=== PATIENT | male | born 1965 | race Caucasian/White ===

== ENCOUNTER 2021-04-20 12:36 | Outpatient (REF) | payer OTHER, SELFPAY ==
--- NOTE | ~2021-04-20 | XR_ITS ---
EXAMINATION: XR THORACIC SPINE XR LUMBAR SPINE CLINICAL INFORMATION: Pain. COMPARISON: None TECHNIQUE: 3 views of the thoracic spine including swimmer's view and 3 views of the lumbar spine. FINDINGS: THORACIC SPINE: There is curvature of the midthoracic spine to the right with apex at T7. Bone alignment is otherwise normal. No fracture or dislocation is seen. Disc spaces are normal. There is degenerative spondylosis of the visualized cervical spine. LUMBAR SPINE: There is mild curvature of the lower lumbar spine to the left. Bone alignment is otherwise normal. No fracture or dislocation is seen. Disc spaces are normal. There is lower lumbar spine facet arthritis. There is evidence of atherosclerotic disease. XR/XR lumbar spine 2-3V IMPRESSION: Thoracic spine: Mild scoliosis of the midthoracic spine to the right. Lumbar spine: Lower lumbar spine facet arthritis.
--- NOTE | ~2021-04-20 | XR_ITS ---
EXAMINATION: XR THORACIC SPINE XR LUMBAR SPINE CLINICAL INFORMATION: Pain. COMPARISON: None TECHNIQUE: 3 views of the thoracic spine including swimmer's view and 3 views of the lumbar spine. FINDINGS: THORACIC SPINE: There is curvature of the midthoracic spine to the right with apex at T7. Bone alignment is otherwise normal. No fracture or dislocation is seen. Disc spaces are normal. There is degenerative spondylosis of the visualized cervical spine. LUMBAR SPINE: There is mild curvature of the lower lumbar spine to the left. Bone alignment is otherwise normal. No fracture or dislocation is seen. Disc spaces are normal. There is lower lumbar spine facet arthritis. There is evidence of atherosclerotic disease. XR/XR thoracic spine 3V IMPRESSION: Thoracic spine: Mild scoliosis of the midthoracic spine to the right. Lumbar spine: Lower lumbar spine facet arthritis.
== END 2021-04-20 12:37 | disposition home or self-care (01) ==
LOC: HO.XRAY 12:36
PROVIDERS: PCP Internal Medicine; Visit Provider Internal Medicine
DX: R10.9 Unspecified abdominal pain (principal); R10.12 Left upper quadrant pain
CPT/HCPCS: 72072; 72100

== ENCOUNTER 2022-02-21 15:27 | Outpatient (REF) | payer OTHER, SELFPAY ==
--- NOTE | ~2022-02-21 | XR_ITS ---
EXAMINATION: XR LUMBOSACRAL SPINE CLINICAL INFORMATION: Low back pain COMPARISON: X-ray 04/20/2021 TECHNIQUE: Three views of the lumbosacral spine. FINDINGS: Mild rightward curvature of the lumbar spine. Bony alignment is otherwise maintained. Vertebral body heights are maintained. No evidence of acute fracture. Mild degenerative spondylosis at L1-L2. Facet degeneration in the lower lumbar spine. SI joints are intact. XR/XR lumbar spine 2-3V IMPRESSION: No acute findings. Mild lumbar spondylosis.
== END 2022-02-21 15:28 | disposition home or self-care (01) ==
LOC: HO.XRAY 15:27
PROVIDERS: PCP Internal Medicine; Visit Provider Internal Medicine
DX: M54.50 Low back pain, unspecified (principal)
CPT/HCPCS: 72100

== ENCOUNTER 2022-06-01 08:28 | Outpatient (REF) | payer OTHER, SELFPAY ==
[2022-06-01 11:19] LABS: MANUAL DIFF FLAG NO
[2022-06-01 11:26] LABS: Basophils Percent Auto 0.3 % (0-2); Eosinophils Absolute Auto 0.4 X10*3/uL (0.0-0.4); Eosinophils Percent Auto 6.1 % (0-4); Hemoglobin 15.2 g/dl (14.0-18.0); Imm Gran Abs Auto 0.02 X10*3/uL (0.00-0.03); Imm Gran Pct Auto 0.3 % (0.0-0.4); Lymphocytes Percent Auto 18.1 % (20-40); Mean Corpuscular HGB Conc 33.8 g/dl (31.0-36.0); Mean Corpuscular Hemoglobin 30.1 pg (27.0-33.0); Mean Corpuscular Volume 89.1 fL (80.0-98.0); Monocytes Absolute Auto 0.4 X10*3/uL (0.1-1.2); Monocytes Percent Auto 6.9 % (2-11); Neutrophils Absolute Auto 3.9 x10*3/uL (2.0-8.3); Neutrophils Percent Auto 68.3 % (45-73); Platelet Count 307 X10*3/uL (160-400); Red Blood Count 5.05 X10*6/uL (4.60-5.80); Red Cell Distribution Width 12.4 % (11.0-16.0); White Blood Count 5.8 X10*3/uL (4.8-10.8)
[2022-06-01 11:57] LABS: Alanine Aminotransferase 43 U/L (0-40); Albumin Level 4.6 g/dL (3.5-5.0); Alkaline Phosphatase 56 U/L (39-117); Anion Gap 13 (12-20); Aspartate Amino Transferase 30 U/L (5-37); Bilirubin Total 1.2 mg/dL (0.0-1.0); Blood Urea Nitrogen 21 mg/dL (9-16); Calcium 9.4 mg/dL (8.4-10.2); Carbon Dioxide 28 mmol/L (22-29); Chloride 102 mmol/L (96-108); Cholesterol 172 mg/dL; Estimated Glomerular Filt Rate > 60; Glucose Fasting 108 mg/dL (60-99); HDL Cholesterol 65 mg/dL; LDL Cholesterol Calculated 96 mg/dl; Potassium 4.5 mmol/L (3.3-5.1); Prostate Specific Antigen Scr 0.76 ng/mL (<0.05-4.0); Sodium 138 mmol/L (135-145); Triglycerides 59 mg/dL
== END 2022-06-01 08:29 | disposition home or self-care (01) ==
LOC: HO.HMGCLDS 08:28
PROVIDERS: PCP Internal Medicine; Visit Provider Internal Medicine
DX: Z00.00 Encounter for general adult medical examination without abnormal findings (principal); Z12.5 Encounter for screening for malignant neoplasm of prostate; R53.83 Other fatigue; E78.00 Pure hypercholesterolemia, unspecified
CPT/HCPCS: 36415; 80053; 80061; 84153; 85025

== ENCOUNTER → 2024-01-29 09:18 | Outpatient (REF) | payer OTHER, SELFPAY ==
--- NOTE | 2024-01-29 09:22 | CA_ITS ---
Acquisition Time: 2024-01-29 09:33:23 Total Exercise Time: 00:10:28 Test Indications: CP Medications: SEE H Protocol: TORO Max HR: 157 BPM 98% of Pred: 160 BPM Max BP: 174/092 mmHG Max Work Load: 12.5 METS Exercise Stress Test with exercise 10 mins 28 secs of Toro Protocol, achieving 98% MPHR, without any anginal symptoms, with isolated PACs, with normotensive response to exercise. Without EKG changes meeting criteria for ischemia. Test reviewed with Dr. Mosley. Referred By: Nick Reeves Overread By: CRUZITO MAI
== END ==
LOC: HO.CARD 09:18
PROVIDERS: PCP Internal Medicine; Visit Provider Internal Medicine
DX: R07.89 Other chest pain (principal)
CPT/HCPCS: 93017

== ENCOUNTER → 2024-01-29 09:22 | Outpatient (BNV) | payer OTHER, SELFPAY | PROVIDERS: PCP Internal Medicine; Visit Provider Nurse Practitioner Family | DX: I49.1 Atrial premature depolarization (principal) | CPT/HCPCS: 93016; 93018 ==

== ENCOUNTER 2024-04-05 11:19 | Day surgery (SDC) | payer OTHER, SELFPAY ==
[2024-04-01 14:12] VITALS: BMI 28.0
--- NOTE | 2024-04-02 10:09 | P.CONAN_ITS ---
Documented by User: Helga Munoz NP 04/02/24 10:09 HPI - Anesthesia Eval Consult details Narrative: 59yo M for Colonoscopy [facility] Past Medical History Medical History Elevated cholesterol Panic attacks Anxiety Depression HTN (hypertension) Surgical History Surgical History H/O colonoscopy Hx of eye surgery Social History Social History Patient Tobacco Use Status: Never used Tobacco Have you been hit, kicked, punched, or otherwise hurt by someone within the past year? If so, by whom?: No Are you DNR?: No Advance Directives: No Advance Directives Information Provided: Yes Nutrition Risks: No Nutritional Risk Meds Allergies Allergy/AdvReac Type Severity Reaction Status Date / Time No Known Allergies Allergy Verified 04/01/24 14:01 Home Medications ?Medication ?Instructions ?Recorded ?Confirmed ?Last Taken ?Type alprazolam 1 mg tablet 1 mg PO BID PRN Anxiety 04/01/24 04/01/24 04/04/24 History atorvastatin 20 mg tablet 20 mg PO DAILY 04/01/24 04/01/24 04/04/24 History buspirone 7.5 mg tablet 7.5 mg PO BID anxiety 04/01/24 04/01/24 04/04/24 History duloxetine 60 mg capsule,delayed 60 mg PO BEDTIME 04/01/24 04/01/24 04/04/24 History release metoprolol succinate 50 mg 50 mg PO DAILY 04/05/24 04/05/24 04/05/24 History tablet,extended release 24 hr Exam Height,Weight and Vital Signs: Height 6 ft 1 in Weight 96.162 kg Assessment and Plan Assessment Anesthesia Assessment: Chart Reviewed Documented by User: Sherrie Arellano MD 04/05/24 13:22 [facility] Past Medical History Medical History Elevated cholesterol Panic attacks Anxiety Depression HTN (hypertension) Surgical History Surgical History H/O colonoscopy Hx of eye surgery History of Problems with Anesthesia: No Social History Social History Patient Tobacco Use Status: Never used Tobacco Have you been hit, kicked, punched, or otherwise hurt by someone within the past year? If so, by whom?: No Are you DNR?: No Advance Directives: No Advance Directives Information Provided: Yes Nutrition Risks: No Nutritional Risk Meds Allergies Allergy/AdvReac Type Severity Reaction Status Date / Time No Known Allergies Allergy Verified 04/01/24 14:01 Home Medications ?Medication ?Instructions ?Recorded ?Confirmed ?Last Taken ?Type alprazolam 1 mg tablet 1 mg PO BID PRN Anxiety 04/01/24 04/01/24 04/04/24 History atorvastatin 20 mg tablet 20 mg PO DAILY 04/01/24 04/01/24 04/04/24 History buspirone 7.5 mg tablet 7.5 mg PO BID anxiety 04/01/24 04/01/24 04/04/24 History duloxetine 60 mg capsule,delayed 60 mg PO BEDTIME 04/01/24 04/01/24 04/04/24 History release metoprolol succinate 50 mg 50 mg PO DAILY 04/05/24 04/05/24 04/05/24 History tablet,extended release 24 hr Exam Airway Mallampati Class: III TM Dist: >3cm Neck ROM: Full Partial: Upper and Lower Loose/Missing/Broken Teeth: Yes, Upper and Lower Heart: RRR Lungs: CTA Assessment and Plan Assessment Anesthesia Assessment: Anesthesia Plan Discussed Final Anesthetic Review History of Problems with Anesthesia: No NPO: Yes ASA Class: II Final Preanesthetic Review: Meds/Allgs Chart Reviewed, Consent Obtained/Reviewed and Anes Risks/Benef Reviewed Patient Risk: Low Procedure Risk: Low Anesthetic Plan Anesthetic Plan: MAC: Disposition: Standard PACU
[2024-04-05 11:39] VITALS: BP 135/98; PULSE 83; RESP 19; TEMP 36.9; O2SAT 99; BMI 28.0
[2024-04-05] MEDS: Lactated Ringers 1,000 ML 100 ML IVCONT (11:55)
--- OUTSIDE RECORDS SUMMARY | 2024-04-05 13:19 | XMS_ITS ---
Author Organization [facility] Address [address] [place] [address] Care Team Providers Care Bilingual Operator Name Role Phone Nick Reeves MD Primary Care Provider Unavailab Justin Gutiérrez Unavailable [phone] REASON FOR VISIT COLON SCREENING Encounters Encounter Location Date Provider Diagnosis [facility] [address] [place] [address] 12/31/2023 Justin Alvarez PLAN OF TREATMENT No Information
--- OUTSIDE RECORDS SUMMARY | 2024-04-05 13:19 | XMS_ITS | Patient Health Record ---
Author Organization [facility] Address [address] [place] [address] Care Team Providers Care Occ Therapy Asst Name Role Phone Nick Reeves MD Primary Care Provider Justin Estes Unavailable [phone] ALLERGIES No Known Allergies REASON FOR REFERRAL No Information MEDICATIONS Medication SIG (Take, Route, Frequency, Duration) Notes Start Date End Date Status ALPRAZolam 1 MG TAKE 1 TABLET BY PRISCA TH TWICE A DAY NEEDED Oral for 30 Active busPIRone HCl 7.5 MG TAKE 1 TABLET BY MO UTH TWICE A DAY FOR SYMPTOMS OF ANXIETY. Oral for 90 Active DULoxetine HCl 60 MG TAKE 1 CAPSULE BY M OUTH EVERYDAY AT BEDTIME Oral for 90 Active Atorvastatin Calcium 20 MG TAKE 1 TABLET BY MOUTH EVERY DAY Oral for 90 Active IMMUNIZATIONS Vaccine Route Administration Date Status Comme nts Influenza Unknown 10/08/2023 Refused SOCIAL HISTORY Tobacco Use: Social History Observation Description Date Details (start date - stop date) Never Smoker NA - NA Sex Assigned At : Social History Observation Description Sex Assigned At Unknown Tobacco Use/Smoking Question Answer Notes Patient is a nonsmoker Alcohol Screen Question Answer Notes Did you have a drink contain ing alcohol in the past year? Yes How often did you have a dri nk containing alcohol in the past year? 2 to 3 times a week (3 points) How many drinks did you have on a typical day when you were drinking in the past year? 1 or 2 drinks (0 point) How often did you have 6 or more drinks on one occasion in the past year? Never (0 point) Points 3 Interpretation Negative PROBLEMS Problem Type ICD Code Onset Dates Problem Status W/U Status Risk SNOMED Code Notes Problem History of adenomatous polyp of colon (Z86.010) Active confirmed History of adenomatous polyp of colon (390929554) Problem Colon cancer screening (Z12.11) Active confirmed Colon cancer screening (345314892) Problem Encounter for other preprocedural examination (Z01.818) Active confirmed Pre-procedure evaluation check (131461029) VITAL SIGNS Temperature 97.8 degrees Fahrenheit 10/08/2023 Blood pressure diastolic 00 mm Hg 10/08/2023 Height 6 ft 1 in in 10/08/2023 Blood pressure systolic 000 mm Hg 10/08/2023 Weight 212 lb 2 oz lbs 10/08/2023 BMI 27.98 kg/m2 10/08/2023 Encounters Encounter Location Date Provider Diagnosis [facility] [place] [address] [place] [id number] 01/12/2024 Justin Alvarez [facility] [place] Out[place] [address] [place] [id number] 04/05/2024 Justin Alvarez [facility] [address] [place] [address] 12/31/2023 Justin Alvarez [facility] [address] [place] [address] 10/08/2023 Justin Alvarez History of adenomato us polyp of colon Z86.010 ; Encounter for other preprocedural examination Z01.818 and Colon cancer screening Z12.11 ASSESSMENTS Encounter Date Diagnosis Assessment Notes Treatment Notes Treatment Clinical Notes 10/08/2023 History of adenomatous polyp of colon (ICD-10 - Z86.010) 10/08/2023 Encounter for other preprocedural examination (ICD-10 - Z01.818) 10/08/2023 Colon cancer screening (ICD-10 - Z12.11) PLAN OF TREATMENT Future Test Test Name Order Date COLONOSCOPY 10/08/2023 Insurance Providers Payer Name Payer Address Payer Phone Subscriber Number Group Number Insured Name Patient Relationship to Insured Coverage Start Date Coverage End Date [facility] [address] [place] [phone] [id number] ABHAY HUERTA Self - patient is the insured MEDICAL (GENERAL) HISTORY Medical History History ICD Code HTN (borderline) Screening colonoscopy 02/10 in [place] with removal of a 7 mm polyp--path not available, but he was told it was precancerous Denies [place],DM,CVA,Lung disease,renal dise ase Depression/Anxiety/Panic attacks Surgical History Surgery Date(Month/Year) Eye surgery 1975
--- OUTSIDE RECORDS SUMMARY | 2024-04-05 13:19 | XMS_ITS ---
Author Organization [facility] Address [address] [place] [address] Care Team Providers Care Quality Control Tech Name Role Phone Nick Reeves MD Primary Care Provider Unavailab Justin Gutiérrez Unavailable [phone] REASON FOR VISIT screening colon Encounters Encounter Location Date Provider Diagnosis [facility] [place] Out[place] [address] [place], [place] [phone] 04/05/2024 Justin Alvarez PLAN OF TREATMENT No Information
--- OUTSIDE RECORDS SUMMARY | 2024-04-05 13:19 | XMS_ITS ---
Author Organization [facility] Address [address] [place] [address] Care Team Providers Care Risk Control Specialist Name Role Phone Nick Reeves MD Primary Care Provider Unavailab Justin Gutiérrez Unavailable [phone] REASON FOR VISIT screening colon Encounters Encounter Location Date Provider Diagnosis [facility] [place] [address] [place], [place] [phone] 01/12/2024 Justin Alvarez PLAN OF TREATMENT No Information
[2024-04-05 14:23] VITALS: BP 93/66; PULSE 66; RESP 16; TEMP 36.2; O2SAT 99
--- NOTE | 2024-04-05 14:25 | P.BOP_ITS ---
Brief Operative Note Date of Service: 04/05/24 Pre-op diagnosis: Screening Post-op diagnosis: other (Colon polyps) Procedure: Colonoscopy to the cecum and TI with cold snare polypectomy x 2 Surgeon: Justin Alvarez MD Anesthesia: MAC Was an Residential Monitor used for this Procedure?: No Estimated blood loss (mL): 2.0 Pathology: other (A. Transverse colon polyp B. Rectal polyp) Condition: stable Disposition: PACU
[2024-04-05 14:38] VITALS: BP 134/96; PULSE 65; RESP 16; O2SAT 99
[2024-04-05 14:53] VITALS: BP 127/91; PULSE 65; RESP 16; TEMP 36.9; O2SAT 99
--- NOTE | 2024-04-05 15:36 | OP_ITS ---
DATE OF SERVICE: 04/05/2024 SURGEON: Justin Alvarez MD INDICATIONS: The patient presents for evaluation of personal history of tubular adenoma of the colon and need for colorectal cancer screening. Full consent has been obtained from him for this, including risks of bleeding and perforation. PREOPERATIVE DIAGNOSIS: POSTOPERATIVE DIAGNOSIS: PROCEDURE PERFORMED: Colonoscopy to cecum and terminal ileum with cold snare polypectomy x2. ESTIMATED BLOOD LOSS: COMPLICATIONS: ANESTHESIA: Monitored anesthesia care. ASSISTANTS: SPECIMENS: PREOPERATIVE DIAGNOSES: Colorectal cancer screening and personal history of tubular adenoma of the colon. POSTOPERATIVE DIAGNOSES: Colorectal cancer screening, personal history of tubular adenoma of the colon, small colon polyps, diverticulosis, and internal hemorrhoids. DESCRIPTION OF PROCEDURE: The patient was placed in the left lateral decubitus position. The digital rectal exam revealed no abnormalities. The Olympus video pediatric colonoscope was then entered into the rectum and advanced easily to the cecum. Once in the cecum, I did identify normal-appearing cecal pouch with appendiceal orifice and a normal-appearing ileocecal valve. The terminal ileum was cannulated and appeared normal. The scope was withdrawn back in the colon. The entire cecum and ileocecal valve appeared normal. The scope was slowly withdrawn assessing all mucosal surfaces carefully. Preparation was excellent. In the transverse colon, was an approximately 5 or 6 mm grossly adenomatous polyp, which was removed by cold snare polypectomy and recovered by suction. The polypectomy site appeared clean, without any sign of residual polyp nor significant bleeding. In the rectum, was an approximately 5 mm polyp, which was removed by cold snare polypectomy and recovered by suction. The polypectomy site appeared clean, without any sign of residual polyp nor significant bleeding. I did not visualize any other polyps, colitis, nor angiodysplasias. There was a mild amount of sigmoid diverticulosis. In the rectum, scope was retroflexed, visualizing internal hemorrhoids, but no other pathology. The rectal mucosa appeared normal. The scope was straightened and withdrawn from the patient. He tolerated the procedure well and was returned to the recovery area in stable condition. IMPRESSION: 1. Colon polyps. 2. Diverticulosis. 3. Internal hemorrhoids. PLAN: The results of the pathology will be checked. I would recommend a repeat colonoscopy in 5 years for further screening. He will, otherwise, see me on a p.r.n. basis. MD DELANEY Evans/NATE / [phone]
== END 2024-04-05 15:20 | disposition home or self-care (01) ==
PROVIDERS: PCP Internal Medicine; Visit Provider Internal Medicine
PROC: 0DJD8ZZ Inspection of Lower Intestinal Tract, Via Natural or Artificial Opening Endoscopic (ICD-10-PCS; CPT 45378; principal; 2024-04-05 12:20)
DX: Z12.11 Encounter for screening for malignant neoplasm of colon (principal); Z86.0101 Personal history of adenomatous and serrated colon polyps; D12.3 Benign neoplasm of transverse colon; K62.1 Rectal polyp; K57.30 Diverticulosis of large intestine without perforation or abscess without bleeding; K64.8 Other hemorrhoids; I10 Essential (primary) hypertension; E78.00 Pure hypercholesterolemia, unspecified; F32.A Depression, unspecified; F41.9 Anxiety disorder, unspecified; F41.0 Panic disorder [episodic paroxysmal anxiety]; Z79.899 Other long term (current) drug therapy
CPT/HCPCS: 45385; 88305; J2250; J2704

== ENCOUNTER 2024-10-26 09:26 | Outpatient (AMB) | payer OTHER, SELFPAY ==
--- OUTSIDE RECORDS SUMMARY | 2024-04-05 08:20 | XMS_ITS ---
Author Organization [facility] Address [address] [place] [address] Care Team Providers Care Bottomer Operator Name Role Phone Lala (RETIRED) Nick FLORIAN Primary Care Provider Unavailable Justin Alvarez Unavailable [phone] REASON FOR VISIT screening colon Problems Problem Type SNOMED Code ICD Code Onset Dates Problem Status W/U Status Risk Notes Problem Diverticular disease of colon (879258569) Diverticulosis of large intestine without perforation or abscess without bleeding (K57.30) Active confirmed Encounters Encounter Location Date Provider Diagnosis [facility] Out[place] [address] [place], [place] [phone] 04/05/2024 Justin Alvarez Colon cancer scree ashish [...] Notes * ABHAY HUERTADOB:1965 (59 yo M)Acc No.[id number]:04/05/2024 COLON WITH MAC Patient: ABHAY COHEN Provider: Bebe Alvarez MD :1965 A ge:59 Y S ex:Male Date:04/05/2024 Address:[address] [place] [address] [address], [place], [place] Pcp:Nick Reeves (RETIRED) MD Subjective: * Chief [...] 04/05/2024 Generated for Kobi mauro/Gio/Yumikosmitting on: 0 10/26/2024 09:47 AM EDT
--- NOTE | 2024-10-26 09:23 | A.OFFPC_ITS ---
Vital Signs 10/26/24 09:27 Height 6 ft 1.23 in Weight 208 lb BMI 27.3 BP 136/80 Respiration 16 Pulse 74 Pulse Source Pulse Oximeter Temp 98.2 F Temp Source Temporal Artery Scan Pulse Oximetry (%) 98 Oxygen Delivery Method Room Air Intake Visit Reasons: [facility] - HTN, Hyperlipidemia, ? pre-DM Binder Fixer Required: No Accompanied by: Self / Same As Patient Allergies No Known Allergies Allergy (Verified 10/26/24 10:34) Medication List - Last Reconciled 10/26/24 by Karla Gayle PA-C alprazolam 1 mg PO BID PRN atorvastatin 20 mg PO DAILY buspirone 7.5 mg PO BID duloxetine 60 mg PO BEDTIME duloxetine 30 mg PO QAM metoprolol succinate ER 50 mg PO DAILY Tobacco use date assessed: 10/26/24 Dental Screening Dental Screen Date: 10/26/24 Did you have a dental visit in the last 12 months?: Yes Did you have a dental problem in the last 6 months where you did not have access to dental care?: No Was dental information given to patient?: Patient has dentist HPI [facility] - HTN, Hyperlipidemia, ? pre-DM HPI Details The patient is a 59-year-old male presenting with the need to establish care with a new provider. He has been taking alprazolam 1 mg twice a day as needed for anxiety, which was initially prescribed in [place] five years ago and continued by a psychiatrist for the past four years. The patient reports that while the medication is effective, he feels dependent on it and experiences withdrawal symptoms if not taken regularly. The patient has a history of hypertension and hyperlipidemia, managed with metoprolol and atorvastatin, respectively. 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 His blood pressure has been elevated in the past year, possibly due to job-related stress, but is currently controlled at 136/80 mmHg. The patient underwent a colonoscopy approximately four months ago, which revealed colon polyps, diverticulosis, and hemorrhoids. The polyps were removed and found to be tubular adenomas without high-grade dysplasia or carcinoma. He is advised to have a follow-up colonoscopy in five years. Social History - Employment: Works a stressful job, con tributing to elevated blood pressure. - Exercise: Previously engaged in [employer], currently uses cold water therapy for stress and inflammation management. [facility] Medical History (Updated 10/26/24 @ 11:10 by Karla Gayle PA-C) Colon polyps Hyperlipidemia Elevated cholesterol Panic attacks Anxiety Depression HTN (hypertension) Surgical History H/O colonoscopy Hx of eye surgery Family History Mother Lymphoma Social History Housing: Apartment Alcohol intake: current Alcohol intake frequency: a few times a week Alcohol type: beer Patient Tobacco Use Status: Never used Tobacco Substance Use Type: Marijuana service: No Current occupational status: employed Cognitive needs: No Hearing needs: No Vision needs: Yes (reading glasses) Questionnaire PHQ-9 Over the last 2 weeks, how often have you been bothered by any of the following problems? 1. Little interest or pleasure in doing things: several days 2. Feeling down, depressed, or hopeless: more than half the days 3. Trouble falling or staying asleep, or sleeping too much: several days 4. Feeling tired or having little energy: more than half the days 5. Poor appetite or overeating: not at all 6. Feeling bad about yourself - or that you are a failure or have let yourself or your family down: several days 7. Trouble concentrating on things, such as reading the newspaper or watching television: more than half the days 8. Moving or speaking so slowly that other people could have noticed. Or the opposite - being so fidgety or restless that you have been moving around a lot more than usual: more than half the days 9. Thoughts that you would be better off or of hurting yourself in some way: not at all Total score: 11 Depression Screening Interpretation: Positive Depression Screening Follow-up: Existing condition and In treatment Depression Screening Done: Yes 26866 - PHQ-9 Billing: Yes Source: Developed by Drs. Justin Garcia, Alissa Aguiar, Power bradley nd colleagues, with an educational es from [employer]. Thrive Questionnaire Date Thrive assessed: 10/26/24 I am a: Patient What is your living situation today?: I have a steady place to live Within the past 12 months, did the food you bought not last and you didn't have the money to get more?: Never true Within the past 12 months, did you worry whether your food would run out before you got money to buy more?: Never true Do you have trouble paying for medicines?: No Do you have trouble getting transportation to medical appointments?: No Do you have trouble paying your heating and electricity bill?: No Do you have trouble taking care of your child, family member or friend?: No Do you have trouble with day-to-day activities such as bathing, preparing meals, shopping, managing finances, etc.?: No Are you currently unemployed and looking for a job?: No Are you interested in more education?: No Please select the resources that you would like help with: None THRIVE Score: 0 AUDIT C Alcohol Use Questionnaire (AUDIT-C) 1. How often do you have a drink containing alcohol?: 4 or more times a week 2. How many drinks containing alcohol do you have on a typical day when you are drinking?: 5 or 6 3. How often do you have six or more drinks on one occasion?: Never Total Score: 6 Score Reviewed/Action Taken: No JOVANY-7 AMB Questionnaire JOVANY-7 Date JOVANY - 7 assessed: 10/26/24 Feeling nervous, anxious, or on edge: 3 = Nearly every day Not being able to stop or control worryin = Nearly every day Worrying too much about different things: 3 = Nearly every day Trouble relaxin = Nearly every day Being so restless that it is hard to sit still: 2 = More than half the days Becoming easily annoyed or irritable: 1 = Several days Feeling afraid as if something awful might happen: 3 = Nearly every day Total JOVANY-7 score (0-4 normal; 5-9 mild; 10-14 moderate; 15-21 severe): 18 Source: Developed by Drs. Justin Garcia, Alissa Aguiar, Power Guo and colleagues, with an educational es from [employer] JOVANY-7 Assessment Billing JOVANY-7 Assessment Tool: JOVANY-7 Assessment 24613 Review of Systems Const Details: - Cardiovascular: Denies chest pain, reports occasional dyspnea possibly related to anxiety. - Gastrointestinal: Denies abdominal pain, no changes in bowel habits, denies hematochezia. - General: Reports withdrawal symptoms in the morning if elazepram is not taken. All systems reviewed & are unremarkable except as noted in HPI and below Physical exam (Primary Care) Vital Signs: Last Vital Signs Temp 98.2 F 10/26/24 09:27 Pulse 74 10/26/24 09:27 Resp 16 10/26/24 09:27 BP 136/80 10/26/24 09:27 Pulse Ox 98 10/26/24 09:27 Oxygen Delivery Method Room Air 10/26/24 09:27 Care Plan Goal for BP management: <140/90 at Goal BMI result Body Mass Index 27.3 BMI Assessment/Plan discussion: High BMI High, discussed plan: lifestyle, weight reduction, dietary, physical activity and alcohol moderation Tobacco/Smoking Status: Tobacco use Status Tobacco use date assessed 10/26/24 10/26/24 09:27 Patient Tobacco Use Status Never used Tobacco 10/26/24 09:34 PHQ-9: PHQ-9 Score PHQ-9: Total score 11 10/26/24 09:37 Depression Screening Interpretation: Positive Depression Screening Follow-up: Existing condition and In treatment Thrive Assessment: Date of Thrive Assessment Date Thrive assessed 10/26/24 10/26/24 09:27 Const Other: Appearance: Alert. Oriented X3. No acute distress. Head: Normal external exam. Normocephalic. Atraumatic. Eyes: Pupils are equal, round, and reactive to light. Extraocular movements intact. Conjunctiva and sclera normal. Eyelids normal. Throat: Pharynx normal. Uvula midline. Moist mucous membranes. Neck: Normal inspection. Neck supple. Full range of motion. Cardiovascular: Normal heart rate and rhythm. Heart sound normal. No murmurs noted. Pulses normal throughout. Respiratory: No respiratory distress. Painless inspiration. Breath sounds nor mal. No wheezes/rales/rhonchi noted. Chest nontender. No accessory muscle usage noted or decreased air movement noted. Back:Full range of motion noted. Skin: Skin warm and dry. Normal skin color. Normal skin turgor. No rashes/lesions/lacerations noted. Extremities: Extremities exhibit normal range of motion. Neuro: Oriented X 3. No motor deficit. No sensory deficit. Reflexes normal. Results Reviewed Results Reviewed: - Colonoscopy: Revealed colon polyps, diverticulosis, and hemorrhoids; polyps were tubular adenomas without high-grade dysplasia or carcinoma. Coding Level of Care Code New Pt Level 4 (98395) Complex EM visit Add On G2211 Diagnoses Hyperlipidemia E78.5 Anxiety F41.9 HTN (hypertension) I10 Colon polyps K63.5 Additional Codes PHQ-9 - 18134 - PHQ-9 Billing: Yes ([id number]) JOVANY-7 Assessment Billing - JOVANY-7 Assessment Tool: JOVANY-7 Assessment 62297 ([id number]) Assessment & Plan Assessment & Plan (1) Hyperlipidemia: Code(s): E78.5 - Hyperlipidemia, unspecified Category: Medical Plan: The patient is on atorvastatin for hyperlipidemia, with a history of elevated cholesterol despite previous weight loss and exercise. Regular lipid panel monitoring was advised, with the next check to be determined based on previous results. Condition is chronic and stable will continue to monitor. (2) Anxiety: Code(s): F41.9 - Anxiety disorder, unspecified Category: Medical Plan: The patient is currently on alprazolam 1 mg twice daily as needed for anxiety, which has been effective but has led to dependence. A gradual tapering strategy was discussed to reduce dependence, including alternating dosages to minimize withdrawal symptoms. Although patient is currently being followed by psychiatrist and he has been in discussion with this and the psychiatrist is prescribing this therefore I explained to him he should discuss this further with the psychiatrist to minimize withdrawal symptoms. (3) HTN (hypertension): Code(s): I10 - Essential (primary) hypertension Category: Medical Plan: The patient's hypertension is managed with metoprolol, and his blood pressure is currently controlled at 136/80 mmHg. Regular monitoring every three months was recommended to ensure continued control. Condition is chronic and stable will continue to monitor. (4) Colon polyps: Code(s): K63.5 - Polyp of colon Category: Medical Plan: The patient had colon polyps removed during a recent colonoscopy, which were tubular adenomas without high-grade dysplasia or carcinoma. A follow-up colonoscopy is recommended in five years to monitor for recurrence. Plan Plan Patient was informed and verbally consented to the use of an ambient scribe for clinic note documentation during this visit. 1. Anxiety The patient is currently on elazepram 1 mg twice daily as needed for anxiety, which has been effective but has led to dependence. A gradual tapering strategy was discussed to reduce dependence, including alternating dosages to minimize withdrawal symptoms. 2. Hypertension The patient's hypertension is managed with metoprolol, and his blood pressure is currently controlled at 136/80 mmHg. Regular monitoring every three months was recommended to ensure continued control. 3. Hyperlipidemia The patient is on atorvastatin for hyperlipidemia, with a history of elevated cholesterol despite previous weight loss and exercise. Regular lipid panel monitoring was advised, with the next check to be determined based on previous results. 4. Colon Polyps The patient had colon polyps removed during a recent colonoscopy, which were tubular adenomas without high-grade dysplasia or carcinoma. A follow-up colonoscopy is recommended in five years to monitor for recurrence. During the visit, we discussed the patient's current medication regimen for anxiety, including the use of elazepram and the potential for dependence. We explored strategies for tapering the medication to reduce withdrawal symptoms, such as alternating dosages. The importance of regular monitoring for hypertension and hyperlipidemia was emphasized, with follow-up appointments scheduled every three months for blood pressure checks. We also reviewed the results of the recent colonoscopy and the plan for a follow-up in five years. Orders: Orders C Reactive Protein Today Z00.00 - Encounter for general adult medical examination without abnormal findings Lipid Panel Today Z00.00 - Encounter for general adult medical examination without abnormal findings Hemoglobin A1c Today Z00.00 - Encounter for general adult medical examination without abnormal findings Liver Panel Today Z00.00 - Encounter for general adult medical examination without abnormal findings TSH reflex Free T4 Today Z00.00 - Encounter for general adult medical examination without abnormal findings PSA,Total (Free>4and<10) Today Z00.00 - Encounter for general adult medical examination without abnormal findings Dihydrotestosterone Today Z00.00 - Encounter for general adult medical examination without abnormal findings DHEA Sulfate Today Z00.00 - Encounter for general adult medical examination without abnormal findings Complete Blood Count Auto Diff Today Z00.00 - Encounter for general adult medical examination without abnormal findings Comprehensive [place]. Panel Fast Today Z00.00 - Encounter for general adult medical examination without abnormal findings Vitamin D 25-OH Total Today Z00.00 - Encounter for general adult medical examination without abnormal findings Vitamin B12 and Folate Today Z00.00 - Encounter for general adult medical examination without abnormal findings Magnesium Today Z00.00 - Encounter for general adult medical examination without abnormal findings Testosterone, Free/Total Today Z00.00 - Encounter for general adult medical examination without abnormal findings Patient Instructions: - Continue taking elazepram as prescribed, but consider tapering the dose as discussed to reduce dependence. - Monitor blood pressure regularly and attend follow-up appointments every three months. - Maintain current medication regimen for hyperlipidemia and hypertension. - Schedule a follow-up colonoscopy in five years.
[2024-10-26 09:27] VITALS: BP 136/80; PULSE 74; RESP 16; TEMP 36.8; O2SAT 98; BMI 27.3
--- OUTSIDE RECORDS SUMMARY | 2024-10-26 09:47 | XMS_ITS | Clinical Summary ---
Author Organization [facility] Address [address] [place] [id number] Phone Care Team Providers Care Counter Top Assembler Name Role Phone Nick Reeves MD Primary Care Provider [phone] Allergies No known active allergies Medications ALPRAZolam (XANAX) 1 MG tablet Take 1 tablet by mouth 2 (two) times a day. 04/18/2024 Active atorvastatin (LIPITOR) 20 MG tablet Take 1 tablet by mouth every morning. 03/23/2024 Active DULoxetine (CYMBALTA) 30 MG capsule TAKE 1 CAPSULE BY MOUTH EVERY DAY WITH 60MG TOTAL 90MG 03/03/2024 Active DULoxetine (CYMBALTA) 60 MG capsule Take 60 mg by mouth nightly at bedtime. 03/22/2024 Active metoprolol succinate (TOPROL-XL) 50 MG 24 hr tablet Take 1 tablet by mouth every morning. 03/25/2024 Active busPIRone (BUSPAR) 7.5 MG tablet Take 7.5 mg by mouth 3 (three) times a day. Active albuterol 90 mcg/actuation inhaler Inhale 2 puffs into the lungs every 6 (six) hours as needed for wheezing. 8 g 04/30/2024 Active inhaler spacing device (AEROCHAMBER,BR EATHERITE) Spcr Inhale 1 each into the lungs every 4 (four) hours as needed. 1 each 04/30/2024 Active Social History Tobacco Use Types Packs/Day Years Used Date Smoking Tobacco: Never Assessed Education Answer Date Recorded Are you interested in more education? Not on kyleigh e 04/30/2024 Are you concerned about learning? Not on file 04/30/2024 No 04/30/2024 No 04/30/2024 Digital Access Answer Date Recorded No 04/30/2024 No 04/30/2024 Reliable internet access at home? Not on file 04/30/2024 Device with a working camera? Not on file Sex and Gender Information Value Date Recorded Sex Assigned at Not on file Legal Sex Male 5:18 PM EST Gender Identity Not on file Sexual Orientation Not on file Last Filed Vital Signs Vital Sign Reading Time Taken Comments Blood Pressure 133/97 04/30/2024 2:02 PM EST Pulse 86 04/30/2024 2:02 PM EST Temperature 36.1 C (97 F) 04/30/2024 2:02 PM EST Respiratory Rate 17 04/30/2024 2:02 PM EST Oxygen Saturation 100% 04/30/2024 2:02 PM EST Inhaled Oxygen Concentration - - Weight 93 kg (205 lb) 04/30/2024 2:02 PM EST Height 188 cm (6' 2 ) 04/30/2024 2:02 PM EST Body Mass Index 26.32 04/30/2024 2:02 PM EST Plan of Treatment Health Maintenance Due Date Last Done Comments Adult Td,Tdap Booster 1964 LIPID PANEL 1964 DEPRESSION SCREENING 1976 SMOKING Hx and SMOKELESS TOB ACCO SCREENING 01/10/1977 HEPATITIS C SCREENING 01/10/1982 HIV ONE-TIME SCREENING (18-6 5 YEARS) 01/10/1982 SCREENING FOR DIABETES 01/10/1999 COLOGUARD 01/10/2009 COLONOSCOPY 01/10/2009 COLORECTAL CANCER SCREENING 01/10/2009 FIT TEST 01/10/2009 FOBT 01/10/2009 SIGMOIDOSCOPY 01/10/2009 VIRTUAL COLONOSCOPY 01/10/2009 PNEUMOCOCCAL VACCINES (50+ y ears) (1 of 1 - PCV) 01/10/2014 ZOSTER VACCINES (1 of 2) 01/10/2014 COVID-19 VACCINE ( - 2023-2 5 season) 2023 RSV VACCINE (1 - 1-dose 75+ series) 01/10/2039 HEPATITIS A VACCINES Aged Out No long er eligible based on patient's age to complete this topic HIB VACCINES Aged Out No longer eligi ble based on patient's age to complete this topic MENINGOCOCCAL VACCINES (ACWY) Aged Out No longer eligible based on patient's age to complete this topic MENINGOCOCCAL VACCINES (B) Aged Out N o longer eligible based on patient's age to complete this topic Medical Devices Not on file Insurance [employer] DIRECT [employer] DIRECT [employer] [place] [address] [place] [address] CONNE[employer]CARE DIRECT [facility] CONNE[employer]CARE DIRECT [facility] [employer] [place] [address] [place] [address] [employer] DIRECT [employer] [place] [address] [place] [address] [employer] DIRECT Care Teams Counter Top Assembler Relationship Specialty Start Date End Date Nick Reeves MD [address] [place] [address] PCP - General Internal Medicine 04/30/24 Additional Source Comments The information contained in this document represents components of the legal health record. It is not the complete legal health record.[facility]
== END 2024-10-26 09:56 | disposition home or self-care (01) ==
LOC: HO.HMCSH 09:26
PROVIDERS: PCP Internal Medicine; Visit Provider Physician Assistant Medical
DX: E78.5 Hyperlipidemia, unspecified (principal); F41.9 Anxiety disorder, unspecified; I10 Essential (primary) hypertension; K63.5 Polyp of colon

== ENCOUNTER → 2024-10-26 09:26 | Outpatient (BNVA) | payer OTHER, SELFPAY | PROVIDERS: PCP Internal Medicine; Visit Provider Physician Assistant Medical | DX: I10 Essential (primary) hypertension (principal); E78.5 Hyperlipidemia, unspecified; R73.03 Prediabetes; F41.9 Anxiety disorder, unspecified; Z79.899 Other long term (current) drug therapy; Z86.0101 Personal history of adenomatous and serrated colon polyps | CPT/HCPCS: 96127; 99202 ==

== ENCOUNTER 2024-10-28 09:02 | Outpatient (REF) | payer OTHER, SELFPAY ==
--- OUTSIDE RECORDS SUMMARY | 2024-04-05 08:20 | XMS_ITS ---
Author Organization [facility] Address [address] [place] [address] Care Team Providers Care Housecleaner Name Role Phone Lala (RETIRED) Nick FLORIAN Primary Care Provider Unavailable Justin Alvarez Unavailable [phone] REASON FOR VISIT screening colon Problems Problem Type SNOMED Code ICD Code Onset Dates Problem Status W/U Status Risk Notes Problem Diverticulosis o f large intestine without perforation or abscess without bleeding (K57.30) Active confirmed Encounters Encounter Location Date Provider Diagnosis [facility] [place] [address] [place] [phone] 04/05/2024 Justin Alvarez Colon cancer scree ashish [...] No Information Progress Notes * ABHAY HUERTADOB:1965 (59 yo M)Acc No.[id number]:04/05/2024 COLON WITH MAC Patient: ABHAY COHEN Provider: Bebe Alvarez MD :1965 A ge:59 Y S ex:Male Date:04/05/2024 Address:[address] [place] [address] [address], [place], [place] Pcp:Nick Reeves (RETIRED) MD Subjective: * Chief Complaints: * 1 . Screening colon. * Medical History: Objective: * Vitals: Assessment: * Assessment: 1. C olon cancer screening - Z12.11 (Primary) 2 . C olon polyps - K63.5? 3. D iverticulosis of large intestine without perforation or abscess without bleeding - K57.30 4 . O ther hemorrhoids - K64.8 Plan: * Treatment: * Procedure Codes: 4 5385 LESION REMOVAL COLONOSCOPY, Modifiers: 33 * * The named appointment provid er may or may not be the originator of this progress note, and it is not deemed complete until electronically signed by the appointment provider. Sign off status: Pending * Provider: Bebe Alvarez MD Date: 0 04/05/2024 Generated for Kobi mauro/Gio/Yumikosmitting on: 0 10/28/2024 09:25 AM EDT
[2024-10-28 09:24] LABS: MANUAL DIFF FLAG NO
--- OUTSIDE RECORDS SUMMARY | 2024-10-28 09:25 | XMS_ITS | Clinical Summary ---
Author Organization [facility] Address [address] [place] [id number] Phone Care Team Providers Care Rn Wound Name Role Phone Nick Reeves MD Primary Care Provider [phone]- [phone] Allergies No known active allergies Medications ALPRAZolam [...] Insurance [employer] DIRECT [employer] DIRECT [place] [address] [place] [address] CONNE[employer] DIRECT [facility] CONNE[employer]ARE DIRECT [facility] [place] [address] [place] [address] [employer] DIRECT [place] [address] [place] [address] [employer] DIRECT Care Teams Rn Wound Relationship Specialty Start Date End Date Nick Reeves MD [address] [place] [address] PCP - General Internal Medicine 04/30/24 Additional Source Comments The information contained in this document represents components of the legal health record. It is not the complete legal health record.[facility]
[2024-10-28 09:52] LABS: Hematocrit 42.0 % (42.0-52.0); Hemoglobin 15.1 g/dl (14.0-18.0); Imm Gran Abs Auto 0.02 X10*3/uL (0.00-0.03); Imm Gran Pct Auto 0.3 % (0.0-0.4); Lymphocytes Absolute Auto 1.1 X10*3/uL (1.2-4.9); Mean Corpuscular HGB Conc 36.0 g/dl (31.0-36.0); Mean Corpuscular Hemoglobin 30.6 pg (27.0-33.0); Mean Corpuscular Volume 85.0 fL (80.0-98.0); NRBC Abs Auto 0.000 X10*3/uL (0.0-0.012); NRBC Pct Auto 0.0 /100WBC (0.0-0.2); Platelet Count 289 X10*3/uL (160-400); Red Blood Count 4.94 X10*6/uL (4.60-5.80); White Blood Count 5.9 X10*3/uL (4.8-10.8)
[2024-10-28 10:00] LABS: Hemoglobin A1C 146.2921 umol/L; Total Hemoglobin (HGBA1C) 3902.3149 umol/L
[2024-10-28 10:44] LABS: Alanine Aminotransferase 47 U/L (0-40); Albumin Level 5.0 g/dL (3.5-5.0); Alkaline Phosphatase 46 U/L (39-117); Anion Gap 12 (12-20); Aspartate Amino Transferase 37 U/L (5-37); Blood Urea Nitrogen 19 mg/dL (9-16); Calcium 9.4 mg/dL (8.4-10.2); Carbon Dioxide 24 mmol/L (22-29); Chloride 108 mmol/L (96-108); Cholesterol 165 mg/dL (<200); Estimated Glomerular Filt Rate > 60; HDL Cholesterol 43 mg/dL (>40); Magnesium 2.2 mg/dL (1.6-2.6); Potassium 3.8 mmol/L (3.3-5.1); Sodium 140 mmol/L (135-145); Total Protein 7.3 g/dL (6.5-8.0); Triglycerides 81 mg/dL (<150)
[2024-10-28 10:52] LABS: PSA,Total (Free>4and<10) 0.71 ng/mL (0.00-4.00)
[2024-10-28 11:09] LABS: Folate 12.0 ng/mL (> or = 4.0); Vitamin B12 262 pg/mL (200-900)
[2024-11-02 14:18] LABS: Testosterone, Free 54.3 pg/mL (35.0-155.0)
== END 2024-10-28 09:03 | disposition home or self-care (01) ==
LOC: HO.LAB 09:02
PROVIDERS: PCP Internal Medicine; Visit Provider Physician Assistant Medical
DX: Z00.00 Encounter for general adult medical examination without abnormal findings (principal); Z12.5 Encounter for screening for malignant neoplasm of prostate
CPT/HCPCS: 36415; 80053; 80061; 80076; 82248; 82306; 82607; 82627; 82642; 82746; 83036; 83735; 84153; 84402; 84403; 84443; 85025; 86140

== ENCOUNTER 2025-02-11 11:05 | Outpatient (AMB) | payer OTHER, SELFPAY ==
--- OUTSIDE RECORDS SUMMARY | 2023-12-31 10:00 | XMS_ITS ---
Author Organization [facility] Address [address] [place] [address] Care Team Providers Care Medical Parasitologist Name Role Phone Lala (RETIRED) Nick FLORIAN Primary Care Provider Unavailable Justin Alvarez [phone] REASON FOR VISIT COLON SCREENING Encounters Encounter Location Date Provider Diagnosis [facility] [address] [place] [address] 12/31/2023 Justin Alvarez Plan Of Treatment No Information Progress Notes * ABHAY HUERTADOB:1965 (60 yo M)Acc No.[id number]:12/31/2023 Progress Notes Patient: ABHAY COHEN Provider: Bebe Alvarez MD :1965 A ge:58 Y S ex:Male Date:12/31/2023 Address:[address] [place] [address] [address], [facility] Pcp:Nick Reeves (RETIRED) MD Subjective: * Chief Complaints: * C OLON SCREENING * The named appointment provid er may or may not be the originator of this progress note, and it is not deemed complete until electronically signed by the appointment provider. Sign off status: Pending * Provider: Bebe Alvarez MD Date: Generated for Kobi mauro/Kellg/eTransmitting on: 04/13/2024 11:56 AM EST
--- OUTSIDE RECORDS SUMMARY | 2024-01-12 09:30 | XMS_ITS ---
Author Organization [facility] Address [address] [place] [address] Care Team Providers Care Injection Molding Machine Setter Name Role Phone Lala (RETIRED) Nick FLORIAN Primary Care Provider Unavailable Justin Alvarez Unavailable [phone] REASON FOR VISIT screening colon Encounters Encounter Location Date Provider Diagnosis [facility] [place] Outpatient [address] [place] [phone] 01/12/2024 Justin Alvarez Plan Of Treatment No Information Progress Notes * BRADLEYABHAYDOB:1965 (60 yo M)Acc No.[id number]:01/12/2024 COLON WITH MAC Patient: ABHAY COHEN Provider: Bebe Alvarez MD :1965 A ge:59 Y S ex:Male Date:01/12/2024 Address:[address] [place] [address] [address], [facility] Pcp:Nick Reeves (RETIRED) MD Subjective: * Chief Complaints: * S creening colon * The named appointment provid er may or may not be the originator of this progress note, and it is not deemed complete until electronically signed by the appointment provider. Sign off status: Pending * Provider: Bebe Alvarez MD Date: Generated for Kobi mauro/Gio/eTransmitting on: 04/13/2024 11:57 AM EST
--- OUTSIDE RECORDS SUMMARY | 2024-04-05 07:20 | XMS_ITS ---
Author Organization [facility] Address [address] [place] [address] Care Team Providers Care Expediter Name Role Phone Lala (RETIRED) Nick FLORIAN Primary Care Provider Unavailable Justin Alvarez Unavailable [phone] REASON FOR VISIT screening colon Problems Problem Type SNOMED Code ICD Code Onset Dates Problem Status W/U Status Risk Notes Problem Diverticular disease of colon (573431858) Diverticulosis of large intestine without perforation or abscess without bleeding (K57.30) Active confirmed Encounters Encounter Location Date Provider Diagnosis [facility] [place] [address] [place], [place] [phone] 04/05/2024 Justin Alvarez Colon cancer scree ashish Z12.11 ; Colon polyps K63.5 ; Diverticulosis of large intestine without perforation or abscess without bleeding K57.30 and Other hemorrhoids K64.8 Assessments Encounter Date Diagnosis (ICD Code) Assessment Notes Treatment Notes Treatment Clinical Notes Section Notes 04/05/2024 Colon cancer screening (ICD-10 - Z12.11) 04/05/2024 Colon polyps (ICD-10 - K63.5) 04/05/2024 Diverticulosis of large intestine without perforation or abscess without bleeding (ICD-10 - K57.30) 04/05/2024 Other hemorrhoids (ICD-10 - K64.8) Plan Of Treatment No Information Progress Notes * ABHAY HUERTADOB:1965 (60 yo M)Acc No.[id number]:04/05/2024 COLON WITH MAC Patient: ABHAY COHEN Provider: Bebe Alvarez MD :1965 A ge:59 Y S ex:Male Date:04/05/2024 Address:[address] [place] [address] [address], [place], [place] Pcp:Nick Reeves (RETIRED) MD Subjective: * Chief Complaints: * S creening colon Assessment: * Assessment: 1. C olon cancer screening - Z12.11 (Primary) 2 . C olon polyps - K63.5? 3. D iverticulosis of large intestine without perforation or abscess without bleeding - K57.30 4 . O ther hemorrhoids - K64.8 Plan: * Procedure Codes: 4 5385 LESION REMOVAL COLONOSCOPY, Modifiers: 33 Billing Information: * Procedure Codes: 77590 LESION REMOVAL COLONOSCOPY. Modifiers: 33 * The named appointment provid er may or may not be the originator of this progress note, and it is not deemed complete until electronically signed by the appointment provider. Sign off status: Pending * Provider: Bebe Alvarez MD Date: 0 04/05/2024 Generated for Kobi mauro/Gio/Mishelransmitting on: 1 04/13/2024 11:56 AM EST
--- NOTE | 2025-02-11 10:58 | MHC.PC.OV ---
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 Required: No Accompanied by: Self / Same As Patient Allergies No Known Allergies Allergy (Verified 02/11/25 11:37) Medication List - Last Reconciled 02/11/25 by Karla Gayle PA-C alprazolam 1 mg PO BID PRN atorvastatin 40 mg PO DAILY buspirone 7.5 mg PO BID duloxetine 60 mg PO BEDTIME duloxetine 30 mg PO QAM metoprolol succinate ER 50 mg PO DAILY Tobacco use date assessed: 10/26/24 Dental Screening Dental Screen Date: 10/26/24 HPI HPI Comments History of Present Illness Details History of Present Illness The patient is a 60 year old individual presenting for a three-month follow-up visit with several clinical concerns. The patient has been experiencing stenosing tenosynovitis of the left middle finger for six months, which is worse in the mornings and requires force to extend the digit. The symptoms reportedly resolve after about two and a half hours, and trials of rest and dgvh-khr-tafwimp medications have not provided relief. There is a concern for low testosterone, as recommended by the patient's psychiatrist, with a history of testosterone levels being barely within the normal range. The patient also reports probable erectile dysfunction. The patient, who identifies as a high-stress person, requested testing for cortisol levels due to symptoms of fatigue, generalized muscle weakness described as tired legs, and abdominal fat. The patient denies use of steroids, wide abdominal stretch fairchild, easy bruising, poor wound healing, or true proximal muscle weakness such as difficulty climbing stairs or rising from a chair. The patient reports a history of anxiety, depression, and possible attention-deficit hyperactivity disorder (ADHD), and is seeking a referral to a new psychiatrist due to dissatisfaction with the current provider. The patient denies any thoughts of self-harm. Past medical history is notable for a hemoglobin A1c of 5.6 in October, indicating a prediabetic state. The patient takes metoprolol. Social History - Employment: The patient is employed. - Living Situation: The patient lives on the second floor and pays rent. - Marital/Relationship Status: The patient has a girlfriend. - Functional Status: Reports high stress levels and occasional fatigue when climbing stairs but is otherwise functional. Results - Labs: Hemoglobin A1c was 5.6% in October, which is in the prediabetic range. Prior testosterone levels were noted to be in the low-normal range. [facility] Medical History (Updated 02/11/25 @ 11:40 by Karla Gayle PA-C) Prediabetes Hypercortisolism Stenosing tenosynovitis of finger of left hand ADHD Erectile dysfunction Low testosterone Fatigue Colon polyps Hyperlipidemia Elevated cholesterol Panic attacks Anxiety Depression HTN (hypertension) Surgical History H/O colonoscopy (~04/05/24) Hx of eye surgery Family History Mother Lymphoma Social History Housing: Apartment Alcohol intake: current Alcohol intake frequency: a few times a week Alcohol type: beer Patient Tobacco Use Status: Never used Tobacco Substance Use Type: Marijuana service: No Current occupational status: employed Cognitive needs: No Hearing needs: No Vision needs: Yes (reading glasses) Questionnaire PHQ-9 Over the last 2 weeks, how often have you been bothered by any of the following problems? 1. Little interest or pleasure in doing things: several days 2. Feeling down, depressed, or hopeless: more than half the days 3. Trouble falling or staying asleep, or sleeping too much: several days 4. Feeling tired or having little energy: more than half the days 5. Poor appetite or overeating: not at all 6. Feeling bad about yourself - or that you are a failure or have let yourself or your family down: several days 7. Trouble concentrating on things, such as reading the newspaper or watching television: more than half the days 8. Moving or speaking so slowly that other people could have noticed. Or the opposite - being so fidgety or restless that you have been moving around a lot more than usual: more than half the days 9. Thoughts that you would be better off or of hurting yourself in some way: not at all Total score: 11 Depression Screening Interpretation: Positive Depression Screening Follow-up: Existing condition, In treatment and Other (referral made ) Depression Screening Done: Yes 76999 - PHQ-9 Billing: Yes Source: Developed by Drs. Justin Garcia, Alissa Aguiar, Power Guo and colleagues, with an educational es from [employer]. Thrive Questionnaire Date Thrive assessed: 10/26/24 I am a: Patient What is your living situation today?: I have a steady place to live Within the past 12 months, did the food you bought not last and you didn't have the money to get more?: Never true Within the past 12 months, did you worry whether your food would run out before you got money to buy more?: Never true Do you have trouble paying for medicines?: No Do you have trouble getting transportation to medical appointments?: No Do you have trouble paying your heating and electricity bill?: No Do you have trouble taking care of your child, family member or friend?: No Do you have trouble with day-to-day activities such as bathing, preparing meals, shopping, managing finances, etc.?: No Are you currently unemployed and looking for a job?: No Are you interested in more education?: No Please select the resources that you would like help with: None THRIVE Score: 0 AUDIT C Alcohol Use Questionnaire (AUDIT-C) 1. How often do you have a drink containing alcohol?: 4 or more times a week 2. How many drinks containing alcohol do you have on a typical day when you are drinking?: 5 or 6 3. How often do you have six or more drinks on one occasion?: Never Total Score: 6 Score Reviewed/Action Taken: No JOVANY-7 AMB Questionnaire JOVANY-7 Date JOVANY - 7 assessed: 10/26/24 Feeling nervous, anxious, or on edge: 3 = Nearly every day Not being able to stop or control worryin = Nearly every day Worrying too much about different things: 3 = Nearly every day Trouble relaxin = Nearly every day Being so restless that it is hard to sit still: 2 = More than half the days Becoming easily annoyed or irritable: 1 = Several days Feeling afraid as if something awful might happen: 3 = Nearly every day Total JOVANY-7 score (0-4 normal; 5-9 mild; 10-14 moderate; 15-21 severe): 18 Source: Developed by Drs. Justin Garcia, Alissa Aguiar, Power Guo and colleagues, with an educational es from [employer]. JOVANY-7 Assessment Billing JOVANY-7 Assessment Tool: JOVANY-7 Assessment 15932 Review of Systems Narrative Review of Systems - Constitutional: Reports fatigue and high stress. - Musculoskeletal: Reports stiffness and locking of the left middle finger, which is worse in the morning. Reports generalized feelings of tired legs. Denies true muscle weakness. - Genitourinary: Reports probable erectile dysfunction. - Integumentary: Denies wide stretch fairchild or easy bruising. - Psychiatric: Reports anxiety, depression, trouble focusing, and high stress. Denies suicidal ideation. Const All systems reviewed & are unremarkable except as noted in HPI and below Physical exam (Primary Care) Vital Signs: Last Vital Signs Temp 98.0 F 02/11/25 10:59 Pulse 84 02/11/25 10:59 Resp 14 02/11/25 10:59 BP 127/75 02/11/25 10:59 Pulse Ox 99 02/11/25 10:59 Oxygen Delivery Method Room Air 02/11/25 10:59 Care Plan Goal for BP management: <140/90 at Goal BMI result Body Mass Index 27.9 BMI Assessment/Plan discussion: High BMI High, discussed plan: lifestyle, weight reduction, dietary, physical activity, alcohol moderation and other Tobacco/Smoking Status: Tobacco use Status Tobacco use date assessed 10/26/24 02/11/25 11:00 Patient Tobacco Use Status Never used Tobacco 02/11/25 11:00 PHQ-9: PHQ-9 Score PHQ-9: Total score 11 02/11/25 11:11 Depression Screening Interpretation: Positive Depression Screening Follow-up: Existing condition, In treatment and Other (referral made ) Thrive Assessment: Date of Thrive Assessment Date Thrive assessed 10/26/24 02/11/25 11:00 Narrative Physical Exam Appearance: Alert. Oriented X3. No acute distress. Head: Normal external exam. Normocephalic. Atraumatic. Eyes: Pupils are equal, round, and reactive to light. Extraocular movements intact. Conjunctiva and sclera normal. Eyelids normal. Throat: Pharynx normal. Uvula midline. Moist mucous membranes. Neck: Normal inspection. Neck supple. Full range of motion. Cardiovascular: Normal heart rate and rhythm. Respiratory: No respiratory distress. Painless inspiration. Back: Full range of motion noted. Skin: Skin warm and dry. Normal skin color. Extremities:Extremities exhibit normal range of motion. Trigger finger noted to left middle finger. No obvious deformities. No signs of infection. The otherwise all other extremities exhibit normal range of motion nontender. Neuro: Oriented X 3. No motor deficit. No sensory deficit. Reflexes normal. Normal steady gait moving all extremities no evidence of weakness. Office Procedures Flu Questionnaire Does the patient have a severe egg allergy?: No Does the patient have severe life threatening allergies?: No Does the patient have a fever or illness today?: No Has the patient ever had Guillain-Lebeau Syndrome?: No Has the patient ever had any past reaction to a flu shot?: No Immunizations Fluarix [id number] (PF) 45 mcg (15 mcg x 3)/0.5 mL IM syringe Performing Provider: Karla Gayle PA-C [facility] Documented (not given) by: WISAM Watson on 02/11/25 11:11 Reason Not Given: Received Previously Results Reviewed Results Reviewed: - Labs: Hemoglobin A1c was 5.6% in October, which is in the prediabetic range. Prior testosterone levels were noted to be in the low-normal range. Coding Level of Care Code Est Pt Level 4 (13054) Complex visit Add On G2211 Diagnoses Stenosing tenosynovitis of finger of left hand M65.842 Low testosterone R79.89 Erectile dysfunction N52.9 Hypercortisolism E24.9 Anxiety F41.9 Depression F32.A Prediabetes R73.03 Additional Codes JOVANY-7 Assessment Billing - JVOANY-7 Assessment Tool: JOVANY-7 Assessment 29154 ([id number]) PHQ-9 - 61710 - PHQ-9 Billing: Yes ([id number]) Assessment & Plan Assessment & Plan (1) Stenosing tenosynovitis of finger of left hand: Code(s): M65.842 - Other synovitis and tenosynovitis, left hand Category: Medical Plan: The patient reports a six-month history of trigger finger in the left middle finger, which has not improved with rest or ylfz-dcm-eszqkxo medication. A referral will be placed to orthopedics for further evaluation and a potential cortisone injection, which was discussed as a treatment option. (2) Low testosterone: Code(s): R79.89 - Other specified abnormal findings of blood chemistry Category: Medical Plan: The patient's psychiatrist has recommended evaluation by a urologist for low testosterone, with prior labs noted to be in the low-normal range. The patient also reports erectile dysfunction. A referral to urology will be placed for a comprehensive workup; repeat testosterone lab testing will be deferred to the specialist. (3) Erectile dysfunction: Code(s): N52.9 - Male erectile dysfunction, unspecified Category: Medical Plan: The patient's psychiatrist has recommended evaluation by a urologist for low testosterone, with prior labs noted to be in the low-normal range. The patient also reports erectile dysfunction. A referral to urology will be placed for a comprehensive workup; repeat testosterone lab testing will be deferred to the specialist. (4) Hypercortisolism: Code(s): E24.9 - [place]'s syndrome, unspecified Category: Medical Plan: The patient reports high stress, fatigue, and abdominal fat, prompting concern for an elevated cortisol level. A late-night salivary cortisol test will be ordered, and detailed instructions for sample collection were provided to the patient. Further testing may be considered if the result is abnormal. (5) Anxiety: Code(s): F41.9 - Anxiety disorder, unspecified Category: Medical Plan: The patient reports anxiety, depression, and possible ADHD and is dissatisfied with the current psychiatrist. A referral will be placed for a new psychiatrist for medication management and further evaluation. (6) Depression: Code(s): F32.A - Depression, unspecified Category: Medical Plan: The patient reports anxiety, depression, and possible ADHD and is dissatisfied with the current psychiatrist. A referral will be placed for a new psychiatrist for medication management and further evaluation. (7) Prediabetes: Code(s): R73.03 - Prediabetes Category: Medical Plan: Given a previous hemoglobin A1c of 5.6% in October, the patient is in a prediabetic state. The hemoglobin A1c will be repeated, and a urinalysis will be performed to assess for proteinuria to evaluate kidney health, which could influence blood pressure management. Plan Plan Patient was informed and verbally consented to the use of an ambient scribe for clinic note documentation during this visit. 1. Stenosing Tenosynovitis, Left Middle Finger The patient reports a six-month history of trigger finger in the left middle finger, which has not improved with rest or hptt-nqm-afejqvt medication. A referral will be placed to orthopedics for further evaluation and a potential cortisone injection, which was discussed as a treatment option. 2. Low Testosterone Level And Erectile Dysfunction The patient's psychiatrist has recommended evaluation by a urologist for low testosterone, with prior labs noted to be in the low-normal range. The patient also reports erectile dysfunction. A referral to urology will be placed for a comprehensive workup; repeat testosterone lab testing will be deferred to the specialist. 3. Evaluation For Hypercortisolism The patient reports high stress, fatigue, and abdominal fat, prompting concern for an elevated cortisol level. A late-night salivary cortisol test will be ordered, and detailed instructions for sample collection were provided to the patient. Further testing may be considered if the result is abnormal. 4. Anxiety And Depression The patient reports anxiety, depression, and possible ADHD and is dissatisfied with the current psychiatrist. A referral will be placed for a new psychiatrist for medication management and further evaluation. 5. Prediabetes Given a previous hemoglobin A1c of 5.6% in October, the patient is in a prediabetic state. The hemoglobin A1c will be repeated, and a urinalysis will be performed to assess for proteinuria to evaluate kidney health, which could influence blood pressure management. 6. Follow-Up The patient will return for a follow-up appointment in three months to review results and progress. The patient was advised to follow up sooner if any results are abnormal. Discussion Notes I discussed my assessment and plan with the patient, who agrees with the course of action. For the trigger finger, I explained that a referral to orthopedics would be made for evaluation and a potential cortisone injection. Regarding the low testosterone concern, I confirmed that a referral to urology would be placed and that they would manage any necessary lab work. I provided detailed instructions for the late-night salivary cortisol test, including the precise timing of collection at 11:00 PM, pre-collection restrictions, and sample handling, and explained that the patient would need to knot picker cloth a collection kit from the lab. I also confirmed that a referral to a new psychiatrist would be placed for ongoing management of anxiety, depression, and ADHD, as requested. We discussed the patient's prediabetic status based on a prior HgbA1c of 5.6, and I ordered a repeat HgbA1c and a urinalysis to check for kidney involvement. I advised the patient to return for a follow-up visit in three months, or to contact us sooner if any lab results are abnormal. Orders: Orders Influenza [id number] Immunization Today Z23 - Encounter for immunization Microalbumin, Random (w Creat) Today E11.9 - Type 2 diabetes mellitus without complications Hemoglobin A1c Today Z00.00 - Encounter for general adult medical examination without abnormal findings Saliva Cortisol Today R53.83 - Other fatigue UA CC w/rflx Micro + Cult Today Z00.00 - Encounter for general adult medical examination without abnormal findings Referrals Urology Referral N52.9 - Male erectile dysfunction, unspecified, R53.83 - Other fatigue, R79.89 - Other specified abnormal findings of blood chemistry Psychiatry Referral F32.A - Depression, unspecified, F41.9 - Anxiety disorder, unspecified, F90.9 - Attention-deficit hyperactivity disorder, unspecified type Patient Instructions: Patient Instructions - A referral has been made to an demolition specialist for your left middle finger pain. Their office should call you within one month to schedule an appointment. - A referral has been made to a urology specialist to discuss your testosterone levels. Their office should call you within one month to schedule an appointment. - A referral has been made to a new psychiatrist for anxiety and depression. Their office should call you within one month to schedule an appointment. - Please go to the lab to knot picker cloth a saliva collection kit for your cortisol test. You can show up without an appointment. They will also collect a urine sample and draw blood for a hemoglobin A1c test. - Follow the instructions for the saliva test carefully. Collect the sample at 11:00 PM. Do not eat, drink, smoke, chew gum, or brush your teeth for 30 minutes before the test. Rinse your mouth with water 10 minutes before collecting the sample. - Please schedule a follow-up appointment in three months. Contact our office sooner if your symptoms worsen.
[2025-02-11 10:59] VITALS: BP 127/75; PULSE 84; RESP 14; TEMP 36.7; O2SAT 99; BMI 27.9
--- OUTSIDE RECORDS SUMMARY | 2025-02-11 11:56 | XMS_ITS | Clinical Summary ---
Author Organization [facility] Address [address] [place] [phone] Phone Care Team Providers Care Foreign Exchange Student Coordinator Name Role Phone Nick Reeves MD Primary Care Provider [phone] Allergies No known active allergies Medications ALPRAZolam [...] 01/10/2014 ZOSTER VACCINES (1 of 2) 01/10/2014 INFLUENZA VACCINE (#1) 2024 COVID-19 VACCINE (1 - 2024-2 6 season) 2024 RSV VACCINE (1 - 1-dose 75+ series) [...] Insurance [employer] DIRECT CONNE[employer] DIRECT [employer] [address] [place] [address] [place] [address] [employer] DIRECT [facility] [employer] [place] [address] [place] [address] [employer] DIRECT [facility] CONNE[employer] DIRECT Care Teams Foreign Exchange Student Coordinator Relationship Specialty Start Date End Date Nick Reeves MD [address] [place] [address] PCP - General Internal Medicine 04/30/24 Additional Source Comments The information contained in this document represents components of the legal health record. It is not the complete legal health record.[facility]
--- OUTSIDE RECORDS SUMMARY | 2025-02-11 11:57 | XMS_ITS | Patient Health Record ---
Author Organization [facility] Address [address] [place] [address] Care Team Providers Care Fish Filleter Name Role Phone Lala (RETIRED) Nick FLORIAN Primary Care Provider Unavailable Justin Alvarez Unavailable [phone] Allergies No Known Allergies Results Component Value Reference Range Notes Pathology (Not yet reviewed by provider) Interpretation: Performing Lab:[facility], [address] [place] [id number] Notes/Report: Reason For Referral No Information Medications Medication SIG (Take, Route, Frequency, Duration) Notes Start Date End Date Status ALPRAZolam 1 MG Tablet TAKE 1 TABLET BY MOUTH TWICE A DAY NEEDED Oral; Duration: 30 Active busPIRone HCl 7.5 MG Tablet TAKE 1 TABLE T BY MOUTH TWICE A DAY FOR SYMPTOMS OF ANXIETY. Oral; Duration: 90 Active DULoxetine HCl 60 MG Capsule Delayed Release Particles TAKE 1 CAPSULE BY MOUTH EVERYDAY AT BEDTIME Oral; Duration: 90 Active Atorvastatin Calcium 20 MG Tablet TAKE 1 TABLET BY MOUTH EVERY DAY Oral; Duration: 90 Active Immunizations Vaccine Route Administration Date Status Comme nts Influenza Unknown 10/08/2023 Refused Social History Tobacco Use: Social History Observation Description Date Details (start date - stop date) Never Smoker NA - NA Social History Drugs/Alcohol: Social Info Question Answer Notes Alcohol Screen Did you have a drink containing alcohol in the past year? Yes How often did you have a drink containing alcohol in the past year? 2 to 3 times a week (3 points) How many drinks did you have on a typical day when you were drinking in the past year? 1 or 2 drinks (0 point) How often did you have 6 or more drinks on one occasion in the past year? Never (0 point) Points 3 Interpretation Negative Tobacco Use: Social Info Question Answer Notes Tobacco Use/Smoking Patient is a nonsmoker Additional Details Category Social Info Options Details Miscellaneous: Marital status: Single, bu t girlfriend of 10 years Occupation: Works full-time in [employer], driving a truck Section Notes: Drinks 10 beers per week Problems Problem Type SNOMED Code ICD Code Onset Dates Problem Status W/U Status Risk Notes Problem Colon cancer screening (875240828) Colon cancer screening (Z12.11) Active confirmed Problem History of adenomatous polyp of colon (108986830) History of adenomatous polyp of colon (Z86.010) Active confirmed Problem Pre-procedure evaluation check (644735709) Encounter for other preprocedural examination (Z01.818) Active confirmed Problem Diverticular disease of colon (156185522) Diverticulosis of large intestine without perforation or abscess without bleeding (K57.30) Active confirmed Encounters Encounter Location Date Provider Diagnosis [facility] [place] [facility] Outpatient [address] [place] [phone] 04/05/2024 Justin Alvarez Colon cancer scree ashish [...] hemorrhoids (ICD-10 - K64.8) Plan Of Treatment Pending Test Test Name Order Date Pathology 04/05/2024 Future Test Test Name Order Date COLONOSCOPY 10/08/2023 Insurance Providers Payer Name Payer Address Payer Phone Subscriber Number Group Number Insured Name Patient Relationship to Insured Coverage Start Date Coverage End Date [facility] PO [facility] [address] [place] [phone] [id number] ABHAY HUERTA Self - patient is the insured Medical (General) History Medical History History ICD Code HTN (borderline) Screening colonoscopy 02/10 in [place] with removal of a 7 mm polyp--path not available, but he was told it was precancerous Denies [place],DM,CVA,Lung disease,renal dise ase Depression/Anxiety/Panic attacks Surgical History Surgery Date(Month/Year) Eye surgery 1967, 1975
== END 2025-02-11 11:31 | disposition home or self-care (01) ==
LOC: HO.HMCSH 11:05
PROVIDERS: PCP Internal Medicine; Visit Provider Physician Assistant Medical
DX: M65.842 Other synovitis and tenosynovitis, left hand (principal); R79.89 Other specified abnormal findings of blood chemistry; N52.9 Male erectile dysfunction, unspecified; E24.9 Cushing's syndrome, unspecified; F41.9 Anxiety disorder, unspecified; F32.A Depression, unspecified; R73.03 Prediabetes; Z23 Encounter for immunization

== ENCOUNTER → 2025-02-11 11:05 | Outpatient (BNVA) | payer OTHER, SELFPAY | PROVIDERS: PCP Internal Medicine; Visit Provider Physician Assistant Medical | DX: M65.842 Other synovitis and tenosynovitis, left hand (principal); R79.89 Other specified abnormal findings of blood chemistry; N52.9 Male erectile dysfunction, unspecified; E24.9 Cushing's syndrome, unspecified; F41.9 Anxiety disorder, unspecified; F32.A Depression, unspecified; R73.03 Prediabetes; Z28.89 Immunization not carried out for other reason | CPT/HCPCS: 90471; 96127; 99212 ==